=== PATIENT | male | born 1925 | race Caucasian/White ===

== ENCOUNTER 2016-05-27 10:38 | Outpatient (CLI) | payer MEDICARE, BC | END 2016-05-27 10:40 | LOC: POD 10:38 | PROVIDERS: ATTEND Podiatrist Public Medicine | DX: E11.9 Type 2 diabetes mellitus without complications (principal); B35.1 Tinea unguium; L60.0 Ingrowing nail; M79.674 Pain in right toe(s); M79.675 Pain in left toe(s) | CPT/HCPCS: 11721; G0463 ==

== ENCOUNTER 2016-09-09 11:13 | Outpatient (CLI) | payer MEDICARE, BC | END 2016-09-09 11:14 | LOC: POD 11:13 | PROVIDERS: ATTEND Podiatrist Public Medicine | DX: E11.9 Type 2 diabetes mellitus without complications (principal); B35.1 Tinea unguium; L60.0 Ingrowing nail; M79.674 Pain in right toe(s); M79.675 Pain in left toe(s) | CPT/HCPCS: 11721; G0463 ==

== ENCOUNTER 2016-12-09 10:52 | Outpatient (CLI) | payer MEDICARE, OTHER | END 2016-12-09 10:53 | LOC: POD 10:52 | PROVIDERS: ATTEND Podiatrist Public Medicine | DX: B35.1 Tinea unguium (principal); L60.0 Ingrowing nail; M79.675 Pain in left toe(s); M79.674 Pain in right toe(s); E11.9 Type 2 diabetes mellitus without complications | CPT/HCPCS: 11721; G0463 ==

== ENCOUNTER 2017-01-20 15:09 | Outpatient (CLI) | payer MEDICARE, OTHER ==
--- NOTE | 2017-01-21 11:40 | OP Clinic Progress Note ---
REASON FOR VISIT: Mr. Dela Cruz is an 89-year-old man accompanied by his . He has several issues. 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 It may occur for several minutes once or twice a day and then not hear it again for several days. This has been going on for several months. In addition, he is wearing a hearing aid. By his history, he has had noise trauma when he was in the . I debrided and cleaned wax from the ear canals and there was more in the left ear than in the right. He felt like a significant amount of pressure was relieved. The eardrum has no evident hole or disease in it. There is no middle ear fluid. The eardrum on the left side is somewhat retracted and somewhat stiffened. It is not to the point that I would say that it represents any type of disease but it can slightly muffle the hearing and occasionally allow people to hear their heartbeat. There is no active visible disease of the ear. Listening to the neck, I hear no significant bruit. He also noted that he has had problems swallowing. He describes this as some difficulty moving food off the back part of his tongue as opposed to getting stuck deeper in his throat. Numerous years ago by his history, he has had several throat stretchings which were fairly effective by Dr. Calixto in [place], [place]. I used a flexible fiberoptic laryngoscope down his left nostril. He tolerated this well. There is no evident mass or tumor and he was concerned in this regard and I told him that I could see both his nasopharynx and his throat very well. 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 The vocal cords abduct and adduct well. He does have some anterior osteophytes that might contribute to some of his dysphagia symptoms. PLAN: I have asked him to get a video swallow and he is compliant in this regard. Regarding the pulsatile tinnitus, I see and hear no active disease and as it does not bother him significantly, I would not suggest additional treatment. If it bothers him more, possibly a small myringotomy or a myringotomy with a tube might be of benefit. cc: Dr. Jazmin LOVE
== END 2017-01-20 15:10 ==
LOC: ENT 15:09
PROVIDERS: ATTEND Otolaryngology
DX: J39.2 Other diseases of pharynx (principal); H93.A2 Pulsatile tinnitus, left ear
CPT/HCPCS: 31575; 69210; G0463